=== PATIENT | male | born 1955 | race Caucasian/White ===

== ENCOUNTER 2022-06-04 10:59 | Outpatient (REF) | payer OTHER, SELFPAY ==
[2022-06-04 13:52] LABS: MANUAL DIFF FLAG NO
[2022-06-04 13:58] LABS: Basophils Percent Auto 0.3 % (0-2); Eosinophils Absolute Auto 0.5 X10*3/uL (0.0-0.4); Eosinophils Percent Auto 8.7 % (0-4); Hematocrit 42.4 % (42.0-52.0); Hemoglobin 13.7 g/dl (14.0-18.0); Imm Gran Abs Auto 0.02 X10*3/uL (0.00-0.03); Imm Gran Pct Auto 0.3 % (0.0-0.4); Lymphocytes Absolute Auto 1.1 X10*3/uL (1.2-4.9); Lymphocytes Percent Auto 17.9 % (20-40); Mean Corpuscular HGB Conc 32.3 g/dl (31.0-36.0); Mean Corpuscular Hemoglobin 28.3 pg (27.0-33.0); Mean Corpuscular Volume 87.6 fL (80.0-98.0); Mean Platelet Volume 9.8 fL (9.4-12.4); Monocytes Absolute Auto 0.5 X10*3/uL (0.1-1.2); Monocytes Percent Auto 8.2 % (2-11); Neutrophils Absolute Auto 3.9 x10*3/uL (2.0-8.3); Neutrophils Percent Auto 64.6 % (45-73); Platelet Count 218 X10*3/uL (160-400); Red Blood Count 4.84 X10*6/uL (4.60-5.80); Red Cell Distribution Width 12.8 % (11.0-16.0); White Blood Count 6.1 X10*3/uL (4.8-10.8)
[2022-06-04 14:27] LABS: Alanine Aminotransferase 29 U/L (0-40); Albumin Level 4.1 g/dL (3.5-5.0); Alkaline Phosphatase 97 U/L (39-117); Anion Gap 12 (12-20); Aspartate Amino Transferase 19 U/L (5-37); Bilirubin Total 0.5 mg/dL (0.0-1.0); Blood Urea Nitrogen 21 mg/dL (9-16); Calcium 8.8 mg/dL (8.4-10.2); Carbon Dioxide 21 mmol/L (22-29); Chloride 111 mmol/L (96-108); Estimated Glomerular Filt Rate > 60; Glucose Random 122 mg/dL (60-115); Potassium 4.7 mmol/L (3.3-5.1); Sodium 139 mmol/L (135-145); Total Protein 6.8 g/dL (6.5-8.0)
[2022-06-04 14:28] LABS: Prostate Specific Antigen 2.35 ng/mL (<0.05-4.0)
== END 2022-06-04 11:00 | disposition home or self-care (01) ==
LOC: HO.MANLDS 10:59
PROVIDERS: Visit Provider Physician Assistant
DX: Z12.5 Encounter for screening for malignant neoplasm of prostate (principal); N40.0 Benign prostatic hyperplasia without lower urinary tract symptoms; I10 Essential (primary) hypertension
CPT/HCPCS: 36415; 80053; 84153; 85025

== ENCOUNTER 2023-07-19 15:30 | Outpatient (REF) | payer OTHER, SELFPAY ==
[2023-07-19 17:39] LABS: MANUAL DIFF FLAG NO
[2023-07-19 17:53] LABS: Basophils Percent Auto 0.4 % (0-2); Eosinophils Absolute Auto 0.8 X10*3/uL (0.0-0.4); Eosinophils Percent Auto 14.8 % (0-4); Hematocrit 42.1 % (42.0-52.0); Hemoglobin 13.4 g/dl (14.0-18.0); Imm Gran Abs Auto 0.03 X10*3/uL (0.00-0.03); Imm Gran Pct Auto 0.5 % (0.0-0.4); Lymphocytes Percent Auto 17.5 % (20-40); Mean Corpuscular HGB Conc 31.8 g/dl (31.0-36.0); Mean Corpuscular Hemoglobin 28.7 pg (27.0-33.0); Mean Corpuscular Volume 90.1 fL (80.0-98.0); Mean Platelet Volume 9.7 fL (9.4-12.4); Monocytes Absolute Auto 0.5 X10*3/uL (0.1-1.2); Monocytes Percent Auto 9.2 % (2-11); Neutrophils Absolute Auto 3.3 x10*3/uL (2.0-8.3); Neutrophils Percent Auto 57.6 % (45-73); Platelet Count 195 X10*3/uL (160-400); Red Blood Count 4.67 X10*6/uL (4.60-5.80); Red Cell Distribution Width 13.4 % (11.0-16.0); White Blood Count 5.7 X10*3/uL (4.8-10.8)
[2023-07-19 18:00] LABS: Alanine Aminotransferase 36 U/L (0-40); Albumin Level 4.2 g/dL (3.5-5.0); Alkaline Phosphatase 86 U/L (39-117); Anion Gap 13 (12-20); Aspartate Amino Transferase 29 U/L (5-37); Bilirubin Total 0.6 mg/dL (0.0-1.0); Blood Urea Nitrogen 17 mg/dL (9-16); Calcium 9.5 mg/dL (8.4-10.2); Carbon Dioxide 23 mmol/L (22-29); Chloride 112 mmol/L (96-108); Estimated Glomerular Filt Rate > 60; Glucose Random 89 mg/dL (60-115); Potassium 4.6 mmol/L (3.3-5.1); Sodium 143 mmol/L (135-145); Total Protein 7.1 g/dL (6.5-8.0)
[2023-07-19 18:14] LABS: Prostate Specific Antigen 2.73 ng/mL (<0.05-4.0)
[2023-07-19 18:17] LABS: Thyroid Stimulating Hormone 0.82 uIU/mL (0.32-4.0)
== END 2023-07-19 15:31 | disposition home or self-care (01) ==
LOC: HO.MANLDS 15:30
PROVIDERS: Visit Provider Internal Medicine
DX: Z12.5 Encounter for screening for malignant neoplasm of prostate (principal); I10 Essential (primary) hypertension; G47.33 Obstructive sleep apnea (adult) (pediatric)
CPT/HCPCS: 36415; 80053; 84153; 84443; 85025

== ENCOUNTER 2025-03-20 13:38 | Outpatient (REF) | payer OTHER, SELFPAY ==
--- OUTSIDE RECORDS SUMMARY | 2025-03-20 16:17 | XMS_ITS | Data Portability ---
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 We? ve discussed the many forms of conservative care for the treatment of the pain and the disability of knee arthritis. Prescription or over the counter NSAIDs have been discussed. These are offered to patients to be taken as directed only in those patients who can tolerate the medications and have no contraindication. He is now taking the Voltaren which does help him to some extent. Next, we have discussed injection in the knee and the many types of injection techniques. We have discussed cortisone, hyaluronic or gel injections, plasma rich protein ( PRP) and even stem cell. These can be made available here in the office. Pros and the cons discussed and if these are helpful they can even be repeated. He has had multiple injections in the past and is really not interested in further injections. Moderation of activities and even the use of bracing for the knee was discussed. For more extensive pain and disability possibly cane, crutch or walker. Physical therapy was discussed and can be prescribed in the more disabled patients. Finally, we have discussed the potential for total knee arthroplasty for the treatment of intractable knee arthritis. He is still frustrated with the left knee we have offered him the potential for left total knee arthroplasty potentially as an outpatient. We have now discussed the potential for a left possibly outpatient TKA. We talked about the pros and cons of left possibly outpatient TKA potential complications. These complications include, but are not limited to, infection, bleeding, stiffness, limitation of motion, limitation of recovery, the risks of limited knee motion, the need for closed manipulation in the short term. I talked about the extraordinary difficulty of gaining back the ROM, including the need for use of physical therapy modalities and even the need for extensive therapeutic modalities, maybe even bracing and potentially long rehab that could last even up to one year. We have discussed the potential for closed manipulation at the end of the initial rehabilitation if the flexion has not been gained adequately. We discussed the use of a splint or DynaSplint if flexion and extension, or if extension is the primary issue. We also talked about the potential for ligamentous injury, fracture of the femur, tibia or patella. We talked about the risks of problems with malalignment and persistent pain and swelling and the need for further operation or surgery. We also discussed the potential for wear, wear of the plastic and potential osteolysis. We talked about potential loosening of the components and the potential need for further surgical intervention over time. We have discussed the potential for loosening of the interfaces. We talked about the risks of potential peroneal nerve injury in those valgus patients with the need for realignment and the potential for ligamentous injury to the varus patients that are in need of realignment. We discussed the pros, cons, indications, risks, benefits and potential complications in a lengthy detailed discussion. The patient appears to understand and would like to consider that left possibly outpatient TKA surgery. Patient has end stage OA, and over the past year has failed conservative treatments including activity modification, NSAIDS, and physical therapy. We have offered and the potential for left total knee arthroplasty potentially as an outpatient. He has a significant dermatologic problem in the front portion of his knee and all the rest of his superficial skin on his elbows and knees. He is seeing a stoker mechanic now. Those lesions need to be completely clear. We will schedule him for the surgery but will need to see him in 3 weeks prior to the surgery in order to make certain that those lesions are completely cleared prior to his surgical intervention. All questions answered. [email or web address] Not available 08/05/2023 08:52:22 10/18/2023 10/18/2023 This visit was conducted as a real time interactive audio/visual telehealth visit conducted via [employer] The patient was identified by name and date of and consented to this telehealth visit. The patient was at their home in [place] and I was at my [place] office. Participants of the telehealth visit included myself and the patient . This visit was done over the course of 20 minutes including record review. PATIENT LEFT KNEE CLEAR TODAY ON EXAM, OK TO PROCEED WITH LEFT TKA. This visit has been transcribed using voice recognition software, spelling errors may occur. Please contact provider with any questions. [email or web address] Not available 10/18/2023 12:15:13 01/20/2024 01/20/2024 We have discusse d the post op TKA. I have encouraged continued outpatient physical therapy. A physical therapy prescription has been written, with specific emphasis on quadriceps strengthening extension, as well as ROM and flexion. We have spoken about wound care, the care of the actual incision, the care of the steri-strips and the care of the wound itself. Patient may use creams or lotions at this time if the wound is well healed. We discussed post op anticoagulation, pt may finish the anticoag med as prescribed post op, and return to their preop anticoag meds if they were prescribed. Also discussed the use of CHARLI stockings. I would recommend stopping them at this point unless they normally use supportive stockings, in which they would return to their normal supportive stocking wear. Patient should continue to ice and elevate to help with the swelling. Spoke with patient about anti-biotic precautions. We recommended Amoxicillin and they will contact us for prescriptions. If there is an allergy, we will discuss that further and make further recommendations for anti-biotic use and that will be on a continuing basis. We talked specifically about ROM strengthening, wound care, activity modifications and driving. Patient will work with outpatient PT on increasing ROM, strength -- will follow up with us in 10 weeks if further PT is needed. Not available 01/20/2024 13:48:24 03/30/2024 03/30/2024 We have discusse d the post op TKA. I have encouraged continued outpatient physical therapy. A physical therapy prescription has been written, with specific emphasis on quadriceps strengthening extension, as well as ROM and flexion. We have spoken about wound care, the care of the actual incision, the care of the steri-strips and the care of the wound itself. Patient may use creams or lotions at this time if the wound is well healed. We discussed post op anticoagulation, pt may finish the anticoag med as prescribed post op, and return to their preop anticoag meds if they were prescribed. Also discussed the use of CHARLI stockings. I would recommend stopping them at this point unless they normally use supportive stockings, in which they would return to their normal supportive stocking wear. Patient should continue to ice and elevate to help with the swelling. Spoke with patient about anti-biotic precautions. We recommended Amoxicillin and they will contact us for prescriptions. If there is an allergy, we will discuss that further and make further recommendations for anti-biotic use and that will be on a continuing basis. We talked specifically about ROM strengthening, wound care, activity modifications and driving. Patient will work with outpatient PT on increasing ROM, strength -- will follow up with us in 10 weeks if further PT is needed. [email or web address] Not available 03/30/2024 09:43:03 01/18/2025 01/18/2025 We have discusse d the TKA. I have encouraged continued exercises with specific emphasis on quadriceps strengthening extension, as well as ROM and flexion. Also discussed the use of supportive stockings/icing/an d elevating if swelling continues to linger. In those patients with chronic stasis, edema or propensity for edema with cellulitis, we've encouraged consulting their PCP for longer term supportive stocking use. We've spoken about anti-biotic precautions before dental procedures. We recommended Amoxicillin and they will contact us for prescriptions and refills prn. If there is an allergy, we will discuss that further and make further recommendations for anti-biotic use and that will be on a continuing basis. Patient should continue a home exercise program to optimize their function, f/u with us with any problems or concerns - and see us back as instructed for routine follow up and xrays. XRAYS were evaluated today during patient's visit, independently interpreted prior to receiving or reviewing Radiologist's interpretation and dictated report. This is a summary of the discussion with the patient and in no way is intended to be a verbatim summation of everything discussed. This visit has been transcribed using voice recognition software, spelling errors may occur. Please contact provider with any questions. [email or web address] Not available 01/18/2025 11:13:12 Plan of Treatment Reminders Order Date Submit Date Provider Last Modified By Organization Details Last Modified Time Details Appointments None recorded . Lab None recorded . Referral physical therapis t referral - Diagnosi s: 4 weeks s/p TKA 2023 024 [facility], [address] [place], [address], 4 10:47:53 Procedures None recorded . Surgeries orthopae dic surgery (SURG) [email or web address] [place] [address] Surgical Suites, [facility], [address], [address], [address], 10:09:32 Imaging None recorded . Medication Orders None recorded . Patient TargetsNo targets recorded. Patient InstructionsNo instructions recorded. Reason for Referral Physical Therapist Referral for Osteoarthritis of left knee joint Diagnosis: 4 weeks s/p TKA Special Instructions: Quad strengthening , extension exercises, COMPREHENSIVE HOME PROGRAM. Referring Physician: Laura Tripathi, Nurse Practitioner- Specialist, Encounter Date: 01/20/2024 Results Created Date Observation Date Name Description Value Unit Range Abnormal Flag Note LastModifiedBy Organization Detail LastModifiedTime 12/13/19 24 12/13/2023 elect izabel diogr am No observ ation record ed. [email or web address] Not Available 2023 15:19:56 01/20/20 24 01/20/2024 XR, knee No observ ation record ed. [email or web address] [facility] [address] [place], [address], 03/22/2024 08:58:23 01/18/20 25 01/18/2025 XR, knee, weigh tbear ing [facility] Pt Name : CHARITO HERNANDEZ 7 - Date: 1954 Sex: M Locati on : [facility] DXR[facility] Visit: [id number] Admit Date: 2024 Date of Servic e: 2024 Exam : XR KNEE AP CLAYTONI ANURAG ALMANZA RAL Status : Final Order MD : RADHA DONATO Ord Tel#:( [phone] CC Provid er:, ------ ------ ------ ------ ------ ------ ------ ------ ------ ------ ------ ------ ------ - INDICA TION: pain Findin gs: There is a left knee arthro plasty with patell ar resurf acing. There is a small knee joint effusi on. There is no eviden ce of hardwa re compli cation or malali gnment . No osseou s lesion s are identi fied and no soft tissue abnorm alitie s are seen. REPORT SIGNED BY: KJ ROBERSON 10:19: 15 [facility] [address] [place], [address], 01/21/2025 07:38:07 01/18/2001/18/2025 XR, knee, 1 or 2 view [facility] Pt Name : CHARITO HERNANDEZ 7 - Date: 1954 Sex: M Locati on : [facility] DXR[facility] Visit: [id number] Admit Date: 2024 Date of Servic e: 2024 Exam : XR KNEE 2 VW LEFT Status : Final Order MD : RADHA DONATO E Ord Tel#:( [phone] CC Provid er:, ------ ------ ------ ------ ------ ------ ------ ------ ------ ------ ------ ------ ------ - INDICA TION: pain Findin gs: There is a left knee arthro plasty with patell ar resurf acing. There is a small knee joint effusi on. There is no eviden ce of hardwa re compli cation or malali gnment . No osseou s lesion s are identi fied and no soft tissue abnorm alitie s are seen. REPORT SIGNED BY: KJ ROBERSON 10:19: 15 Workst ation: [id number] [facility] [address] [place] [address], [place], [address], 01/21/2025 07:38:07 Result Notes None recorded. Problems Name Problem SNOMED Code Status Onset Date Resolution Date Notes Provider Name and Address Organization Details Recorded Time Urticaria 724258524 Active 2021 Not Available [facility] 4 11:07:44 Insomnia 660560117 Active 2020 Not Available [facility] 4 11:07:44 Osteoarthr itis of hip 608912334 Active 2017 Not Available [facility] 4 11:07:44 Benign prostatic hyperplasi a 645660031 Active 2019 Not Available [facility] 4 11:07:44 Shoulder joint pain 354127280 Active 2021 Not Available [facility] 4 11:07:45 Low back pain 881699260 Active 2017 Not Available [facility] 4 11:07:45 Osteoarthr itis of left knee joint 7878585222067 09 Active 2022 Not Available [facility] 4 11:07:45 Anxiety 51719360 Active 2019 Not Available [facility] 4 11:07:45 Essential hypertensi on 63774115 Active 2017 Not Available [facility] 4 11:07:45 Degenerati on of cervical interverte bral disc 56308861 Active 2021 Not Available [facility] 4 11:07:45 Greater trochanter ic pain syndrome 9295122 Active 2017 Not Available [facility] 4 11:07:45 Obstructiv e sleep apnea syndrome 12560624 Active 2022 Not Available [facility] 4 11:07:45 Neck pain 16126816 Active 2021 Not Available [facility] 4 11:07:45 Ophthalmic migraine 36304934 Active 2017 Not Available [facility] 4 11:07:45 Osteoarthr itis of knee 538913424 Active 2023 Not Available [facility] 4 11:07:44 Pain of left knee joint 7822934317703 07 Active 2023 LAURA TRIPATHI NP [address] [place], [address] , [facility] 4 16:53:04 Problem Notes None recorded. Procedures Surgical History Date Name Laterality Status Provider Name and Address Organization Details Recorded Time 4 Orthopaedic Surgery completed Massiel Cadet [facility] 01/20/2024 13:32:39 5 Orthopaedic Surgery completed LAURA TRIPATHI NP [address] [place], [address], [facility] 07/25/2023 14:49:32 Other completed LAURA TRIPATHI NP [address] [place], [address], [facility] 07/25/2023 14:54:16 Imaging Results Imaging Date Name Status LastModified by Organization Details LastModified Time 12/13/2023 electrocardiogram completed [email or web address] Informa tion not available 01/13/2024 15:19:56 01/20/2024 XR, knee completed [email or web address] [facility] [address] [place], [address], 03/22/2024 08:58:23 01/18/2025 XR, knee, weightbearing completed [facility] [address] [place], [address], 01/21/2025 07:38:07 01/18/2025 XR, knee, 1 or 2 view completed [facility] [address] [facility], [place], [address], 01/21/2025 07:38:07 Procedure Notes None recorded. Medical Equipment None Reported. Allergies Allergen ID Allergen Name Allergen Category Reaction Reaction Severity Criticality Documentation Date Start Date Code Code System Note Provider Name and Address Organization Details Recorded Time 19510104 amoxicill in medicatio n Not available Not available Not available 07/25/2023 723 RxNorm LAURA TRIPATHI, BILL [address] [place], [address], [facility] 3 14:49:40 606825 Augmentin medicatio n abdominal pain severe Not available 07/25/20232020 61420 2 RxNorm LAURA TRIPATHI, BILL [address] [place], [address], [facility] 3 14:49:40 613655 wheat gluten extract food rash Not available Not available 07/25/2023 53229 81 RxNorm Not Available [facility] 4 11:07:43 Medications Name Sig Start Date Stop Date Status Note LastModified by Organization Details LastModified Time cyclobenzap rine 10 mg tablet TAKE 1 TABLET BY MOUTH THREE TIMES A DAY FOR 15 DAYS 12/31 completed Not Available Not Available Not Available amoxicillin 500 mg capsule 07/24 completed Not Available Not Available Not Available prednisone 10 mg tablet PLEASE SEE ATTACHED FOR DETAILED DIRECTION S 07/25 completed Not Available Not Available Not Available trazodone 50 mg tablet TAKE 1 TABLET BY MOUTH EVERY DAY 07/25 completed Not Available Not Available Not Available azithromyci n 250 mg tablet TAKE 2 TABLETS BY MOUTH 1 HOUR BEFORE DENTAL WORK active Not Available Not Available No t Available valacyclovi r 1 gram tablet TAKE 1 TABLET BY MOUTH EVERY 8 HOURS FOR 7 DAYS 06/23 completed Not Available Not Available Not Available meloxicam 15 mg tablet TAKE 1 TABLET EVERY DAY BY ORAL ROUTE FOR 30 DAYS. 06/05 completed Not Available Not Available Not Available lisinopril 20 mg tablet TAKE 1 TABLET BY MOUTH ONCE DAILY 02/02 completed Not Available Not Available Not Available ondansetron HCl 4 mg tablet TAKE 1 TAB EVERY 6-8 HOURS NEEDED NEEDED FOR NAUSEA 03/30 completed Not Available Not Available Not Available phentermine 15 mg capsule TAKE 1 CAPSULE BY MOUTH EVERY DAY active Not Available Not Available No t Available amlodipine 5 mg tablet TAKE 1 TABLET BY MOUTH EVERY DAY active Not Available Not Available No t Available aspirin 81 mg tablet,ojão yed release TAKE 1 TABLET BY MOUTH TWICE A DAY FOR 28 DAYS 03/30 completed Not Available Not Available Not Available triamcinolo ne acetonide 0.1 % topical cream APPLY TOPICALLY TO AFFECTED AREAS TWICE DAILY NEEDED FOR TWO WEEKS 06/04 completed Not Available Not Available Not Available terbinafine HCl 250 mg tablet TAKE 1 TABLET BY MOUTH EVERY DAY FOR 3 WEEKS 10/19 completed Not Available Not Available Not Available lorazepam 0.5 mg tablet TAKE 1 TABLET TWICE A DAY BY ORAL ROUTE NEEDED FOR 30 DAYS, FOR ANXIETY AND PANIC DISORDER. active Not Available Not Available No t Available tamsulosin 0.4 mg capsule TAKE 1 CAPSULE BY MOUTH EVERY DAY active Not Available Not Available No t Available trazodone 100 mg tablet TAKE 1 TABLET BY MOUTH EVERYDAY AT BEDTIME active Not Available Not Available No t Available cephalexin 500 mg capsule TAKE 1 CAPSULE BY MOUTH EVERY 6 HOURS FOR 4 DOSES 03/30 completed Not Available Not Available Not Available clotrimazol e-betametha sone 1 %-0.05 % topical cream APPLY TO AFFECTED AREA TWICE A DAY (MORNING AND EVENING) FOR 2 WEEKS 02/02 completed Not Available Not Available Not Available lisinopril 10 mg tablet Take 1 tablet every day by oral route for 30 days. 03/04 completed Not Available Not Available Not Available dapsone 25 mg tablet TAKE 2 TABLETS BY MOUTH TWICE A DAY active Not Available Not Available No t Available diclofenac potassium 50 mg tablet 03/01 completed Not Available Not Available Not Available betamethaso ne dipropionat e 0.05 % topical cream APPLY SPARINGLY TO AFFECTED AREA EVERY DAY 06/04 completed Not Available Not Available Not Available gabapentin 300 mg capsule Take 1 capsule every day by oral route for 30 days. 06/23 completed Not Available Not Available Not Available sertraline 25 mg tablet TAKE 1 TABLET BY MOUTH EVERY DAY 05/19 completed Not Available Not Available Not Available omeprazole 20 mg capsule,del ayed release TAKE 1 CAPSULE BY MOUTH EVERY DAY 03/30 completed Not Available Not Available Not Available diclofenac sodium 75 mg tablet,joão yed release TAKE 1 TABLET BY MOUTH TWICE A DAY NEEDED FOR PAIN 03/30 completed Not Available Not Available Not Available codeine 10 mg-guaifene sin 100 mg/5 mL oral liquid TAKE 10 ML BY MOUTH EVERY 4-6 HOURS NEEDED active Not Available Not Available No t Available halobetasol propionate 0.05 % topical cream APPLY A THIN LAYER TO THE AFFECTED AREA(S) BY TOPICAL ROUTE ONCE DAILY DO NOT EXCEED 50 GRAMS PER WEEK OR 2 WEEKS DURATION 06/04 completed Not Available Not Available Not Available metoprolol succinate ER 25 mg tablet,exte nded release 24 hr TAKE 1 TABLET BY MOUTH EVERY DAY 10/24 completed Not Available Not Available Not Available methylpredn isolone 4 mg tablets in a dose pack TAKE 6 TABLETS ON DAY 1 DIRECTED ON PACKAGE AND DECREASE BY 1 TAB EACH DAY FOR A TOTAL OF 6 DAYS 01/18 completed Not Available Not Available Not Available albuterol sulfate HFA 90 mcg/actuati on aerosol inhaler INHALE 2 PUFFS BY INHALATIO N ROUTE EVERY 4 HOURS DIRECTED active Not Available Not Available No t Available lisinopril 40 mg tablet TAKE 1 TABLET BY MOUTH EVERY DAY active Not Available Not Available No t Available fluticasone propionate 50 mcg/actuati on nasal spray,suspe nsion [place] 1 spray every day by intranasa l route for 30 days. 06/23 completed Not Available Not Available Not Available sertraline 50 mg tablet TAKE 1 TABLET BY MOUTH EVERY DAY active Not Available Not Available No t Available naproxen 500 mg tablet Take 1 tablet twice a day by oral route for 30 days. 11/25 completed Not Available Not Available Not Available amoxicillin 875 mg-potassiu m clavulanate 125 mg tablet Take 1 tablet every 12 hours by oral route for 10 days. 09/22 completed Not Available Not Available Not Available oxycodone 5 mg tablet TAKE 1 TO 2 TABLETS BY MOUTH EVERY 4 HOURS NEEDED FOR PAIN 01/20 completed Not Available Not Available Not Available Aleve active Not Available Not Availa ble Not Available Vitals Date Recorded Body height Body mass index (BMI) Body weight Provider Name and Address Organization Details Last Updated DateTime 08/05/2023 182.88 cm 33.9 kg/m2 587489.09 g Silvano Mendoza [facility] 08/05/2023 07:54:01 Date Recorded Body height Body mass index (BMI) Body weight Provider Name and Address Organization Details Last Updated DateTime 10/18/2023 182.88 cm 33.9 kg/m2 557399.09 g LAURA TRIPATHI NP [address] [place], [address], [facility] 10/18/2023 12:08:52 Date Recorded Body height Provider Name an d Address Organization Details Last Updated DateTime 01/20/2024 182.88 cm Massiel Cadet [facility] 01/20/2024 13:32:41 Date Recorded Body height Provider Name an d Address Organization Details Last Updated DateTime 03/30/2024 182.88 cm Keith EDDY P [address] [facility] [id number] [place] [address] [facility] 03/30/2024 09:20:07 Date Recorded Body height Provider Name an d Address Organization Details Last Updated DateTime 01/18/2025 182.88 cm Keith Eddy P [address] [place], [address] [place] [address] [facility] 01/18/2025 11:02:20 Social History Question Answer Notes LastModified by Organizat ion Details LastModified Time Tobacco Smoking Status Never Smoker LAURA TRIPATHI NP [address] [place], [address], [facility] 07/25/2023 14:53:38 What Is Your Level Of Alcohol Consumption? None [email or web address] Information not available 07/25/2023 Are You Currently Employed? Yes [email or web address] Information not available 07/25/2023 Do You Or Have You Ever Used E-cigarettes Or Vape? 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 [id number] [email or web address] Information not available 07/25/2023 Do You Or Have You Ever Used Any Other Forms Of Tobacco Or Nicotine? No [email or web address] Information not available 07/25/2023 Sex: Unknown Functional Status None recorded. Mental Status None recorded. Family History Relationship Description Onset Age of this Age Resolved Age Notes LastModified by Organization Details LastModified Time Father No current problems or disability tgardiner Not available 08/05 07:54:39 Notes:mother had hypertensio n, heart issues, high cholesterol Medical History Condition Response Blood Clots / Phlebitis N Heart Problems N HIV or AIDS N Depression or Anxiety Y High Blood Pressure Y Irregular Heartbeat N MRSA N Emphysema / Chronic Bronchitis N Any Other Significant Medical Issues N Reaction to General/Local Anesthesia N Weight Gain / Loss N Hepatitis / Jaundice N Kidney / Bladder Infections N Diabetes N Bleeding Disorder N Hearing Loss Y Angina, Heart Failure or Attack N Night Sweats N Seizures / Epilepsy N Osteoarthritis / Rheumatoid arthritis / Other N Cancer N Stroke N Chemical Dependency / Alcoholism N Ulcer / Stomach Bleeding / Indigestion N Visual Loss or Glaucoma N Psoriasis / Skin Rash N Thyroid Disorder N Heart Disease N Asthma / Shortness of Breath / Sleep 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 (please specify) N Pulmonary Embolism N Immunizations Vaccine Type Date Status Note Provider Nam e and Address Organization Details Recorded Time COVID-19, mRNA, LNP-S, PF, 30 mcg/0.3 mL dose 02/18/2021 completed Not Available [facility] 4 11:07:45 COVID-19, mRNA, LNP-S, PF, 30 mcg/0.3 mL dose 03/13/2021 completed Not Available [facility] 4 11:07:45 Past Encounters Encounter ID Performer Location Encounter Start Date Encounter Closed Date Diagnosis/Indication Diagnosis SNOMED-CT Code Diagnosis ICD10 Code Diagnosis Note [id number] LAURA TRIPATHI NP [facility] [address] [place] [address] 07/25/2023 14:45:05 07/25/2023 15:33:02 Osteoarthritis of left knee joint 0550430272 19451 M17.12 [id number] Mary Flower [facility] [address] [place] [address] 08/05/2023 07:51:32 08/05/2023 13:07:56 Osteoarthritis of left knee joint 4415430638 32018 M17.12 [id number] [facility] [address] [place] [address] 10/18/2023 08:40:52 10/18/2023 16:17:37 [id number] LAURA TRIPATHI NP [facility] Office [address] [employer] [place] [address] 01/20/2024 12:58:21 01/20/2024 16:07:57 Osteoarthritis of left knee joint 6748219462 46283 M17.12 [id number] LAURA TRIPATHI NP [facility] [address] [facility] [place] [address] 03/30/2024 08:58:31 03/30/2024 11:43:55 Osteoarthritis of left knee joint 6917845347 61983 M17.12 [id number] Laura Tripathi NP [place] [facility] [address] [facility] [place] [address] 01/18/2025 10:03:33 01/18/2025 12:33:38 Osteoarthritis of left knee joint 4962619425 00451 M17.12 Health Concerns Section Related Observation LastModified by Organization Detai ls LastModified Time None Recorded Concern Status LastModified by Organization Details LastModified Time None Recorded Advance Directives Directive None Recorded Payers Encounter Date Sequence Insurance Name Policy Number Policy Griffin Covered Member ID Griffin Member ID Guarantor Name 08/05/[address] [facility]) [id number] Santhosh Hernandez [id number] Santhosh Hernandez 10/18/[address] [facility]) [id number] Santhosh Hernandez [id number] Santhosh Hernandez 01/20/2024 1 [facility] [id number] Santhosh Hernandez [id number] Santhosh Hernandez 03/30/2024 1 [facility] [id number] Santhosh Hernandez [id number] Santhosh Hernandez 01/18/2025 1 [facility] [id number] Santhosh Hernandez [id number] Santhosh Hernandez Notes Date Note Type Note Provider Name and Address Organization Details Recorded Time 08/05/2023 text/html Santhosh Hernandez presents for evaluation of his left knee. He reports at least 3 to 4 years of increasing pain problems difficulties with his left knee. He reports he been taking Aleve tablets. He has had cortisone injection in the left knee. He had gel injections the left knee. He is limping terribly over the left knee. Finds it very painful and limiting to his activities. 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 He has not had surgery on the left knee. He was switched to diclofenac on his last visit which does seem to be helping a little bit more. He is very frustrated however with the limitations even of activities of daily living with that left knee. BANDAR OCAMPO MD [address] [facility], [place], [address], [facility] [place] 08/05/2023 08:53:05 10/18/2023 text/html TELEHEALTH VISIT , EVAL LEFT KNEE FOR A RASH THAT POPPED UP, PATIENT IRA IT WAS FOOD ALLERGYHAS FINISHED A COURSE OF MEDS PRESCRIBED BY HIS MD. 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 4 weeks ago at {{[facility] Patient is doing well, taking {{NSAIDS TYLENOL* NOTHING}}and NSAIDS for pain. Patient is currently progressing well with {{home outpatient* }} physical therapy. Patient took {{ELIQUIS ECASA*}} for post op anticoagulation, and has finished that course. No fevers, chills, falls, or trauma. Patient ambulates using a {{CANE CRUTCH NO.A SSISTIVE.DEVICES. CRUTCHES#}} . Complaints include ? STIFF, WORKING HARD ON ROM BUT STILL ACHY AND SWOLLEN LAURA TRIPATHI NP [address] [facility], [place], [address], [facility] [place] 01/23/2024 14:04:02 03/30/2024 text/html This is a patien t of GVF, s/p {{RIGHT LEFT*}} {{FRANCIS TKA*}} roughly 4 months ago.Patient is doing well, taking {{NSAIDS* TYLENOL NOTHING}} PRN for pain. 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 one year ago. Patient is doing well, taking {{NSAIDS* TYLENOL NOTHING}}PRN for pain. Patient is currently progressing well with home exercise program. No fevers, chills, falls, or trauma. Patient is not currently using any assistive devices. Other complaints include - MILD TIGHTNESS AT TIMES, BUT OVERALL DOING WELL Laura Tripathi NP [address] [place], [address], [facility] 01/23/2025 18:37:33
--- OUTSIDE RECORDS SUMMARY | 2025-03-20 16:18 | XMS_ITS | Continuity of Care Document ---
Author Organization [place] - [facility], [facility] Address [address] [facility] [place] [address] [place] [address] Assessment No assessment recorded. Plan of Treatment Reminders Order Date Submit Date Provider Last Modified By Organization Details Last Modified Time Details Appointments SDV 2024 11:30A M ANILA MONTANA Not available Not available Not available Lab culture, wound - left knee lesion 2024 025 [facility], [address] [place] [address], [id number], 03/20/2025 11:53:26 Referral None recorded. Procedures None recorded. Surgeries None recorded. Imaging XR, knee, 3 view - hx of replaceme nt, has non healing ulcer on the skin of the left knee 2024 025 [email or web address] [facility], [address] [place], [address], 03/20/2025 12:20:40 Medication Orders doxycycli ne hyclate [address] [id number], [address] [place], [address], 03/20/2025 11:52:07 Patient TargetsNo targets recorded. Patient InstructionsNo instructions recorded. Reason for Referral None Reported. Problems Name Problem SNOMED Code Status Onset Date Resolution Date Notes Provider Name and Address Organization Details Recorded Time Benign prostatic hyperplas ia 928943395 Active 2019 Not Available [facility] 10/07/202 1 08:01:02 Anxiety 36122178 Active 2019 Not Available [facility] 1 08:01:02 Insomnia 677949913 Active 2020 Not Available [facility] 08:01:02 Urticaria 288066639 Active 2021 Rafa Rodriguez DO [address] [place] [address], [address], [facility] 2 14:34:06 Neck pain 81907301 Active 2021 ANILA MONTANA [address] [place], [address], [facility] 2 10:44:03 Shoulder joint pain 924236692 Active 2021 ANILA MONTANA [address] [place], [address], [facility] 2 10:48:28 Shoulder joint pain 995906153 Active 2021 ANILA MONTANA [address] [place], [address], [facility] 2 10:48:42 Degenerat ion of cervical intervert ebral disc 97955738 Active 2021 ANILA MONTANA [address] [place], [address], [facility] 2 10:01:05 Osteoarth ritis of hip 342349144 Active 2017 Right, THR 05/2015 Not Available [facility] 1 08:01:02 Greater trochante wilmer pain syndrome 7683625 Active 2017 Not Available [facility] 1 08:01:02 Low back pain 866383468 Active 2017 LS Not Available [facility] 1 08:01:02 Ophthalmi c migraine 69143925 Active 2017 Not Available [facility] 1 08:01:02 Obstructi ve sleep apnea syndrome 63078041 Active 2022 Rafa Rodriguez, DO [address] [place], [address], [facility] 3 15:17:46 Osteoarth ritis of left knee joint 275021140517 109 Active 2022 Rafa Rodriguez, DO [address] [place], [address], [facility] 3 15:24:40 Panic disorder 727859870 Active 2023 ANILA MONTANA [address] [place] [address], [address], [facility] 4 11:48:25 Night sweats 75312664 Active 2023 ANILA MONTANA [address] [place] [address], [address], [facility] 4 12:36:49 Acute bronchiti s 73322853 Active 2023 ANILA MONTANA [address] [place] [address], [address], [facility] 4 15:02:05 Pain of left shoulder joint 481068602139 08539 Active 2024 ANILA MONTANA [address] [place] [address], [address], [facility] 5 14:35:01 Cough 33882783 Active 2024 ANILA MONTANA [address] [place] [address], [address], [facility] 5 12:00:29 Acute low back pain 496766259 Active 2024 ANILA MONTANA [address] [place] [address], [address], [facility] 5 15:08:52 Degenerat ion of lumbar intervert ebral disc 03119348 Active 2024 ANILA MONTANA [address] [place] [address], [address], [facility] 5 15:17:59 Celluliti s 713075701 Active 2024 ANILA MONTANA [address] [place], [address], [facility] 5 11:47:50 Essential hypertens ion 40041267 Active 2017 Not Available [facility] 08:01:02 Problem Notes None recorded. Medical Equipment None Reported. Allergies Allergen ID Allergen Name Allergen Category Reaction Reaction Severity Criticality Documentation Date Start Date Code Code System Note Provider Name and Address Organization Details Recorded Time 4958 amoxicill in medicatio n Not available Not available Not available 09/22/2021 723 RxNorm Rafa Rodriguez DO [address] [place], [address], [facility] 16:45:45 4959 Augmentin medicatio n abdominal pain severe Not available 09/22/20212020 81290 2 RxNorm Rafa Rodriguez DO [address] [place], [address], [facility] 16:46:21 Medications Name Sig Start Date Stop Date Status Note LastModified by Organization Details LastModified Time cyclobenzap rine 10 mg tablet TAKE 1 TABLET BY MOUTH THREE TIMES A DAY FOR 15 DAYS 12/31 completed Not Available Not Available Not Available amoxicillin 500 mg capsule TAKE 1 CAPSULE BY MOUTH THREE TIMES A DAY 07/19 completed Not Available Not Available Not Available prednisone 10 mg tablet PLEASE SEE ATTACHED FOR DETAILED DIRECTION S 09/14 completed Not Available Not Available Not Available trazodone 50 mg tablet TAKE 1 TABLET BY MOUTH EVERY DAY active Not Available Not Available No t Available azithromyci n 250 mg tablet TAKE 2 TABLETS BY MOUTH 1 HOUR PRIOR TO PROCEDURE 11/30 completed Not Available Not Available Not Available valacyclovi r 1 gram tablet TAKE [...] EVERY 6-8 HOURS NEEDED NEEDED FOR NAUSEA 02/15 completed Not Available Not Available Not Available phentermine 15 mg capsule Take 1 capsule every day by oral route for 30 days. 2024 active Not Available Not Available Not Avai lable amlodipine 5 mg tablet TAKE 1 TABLET BY MOUTH EVERY DAY active Not Available Not Available No t Available aspirin 81 mg tablet,joão yed release TAKE 1 TABLET BY MOUTH TWICE A DAY FOR 28 DAYS active Not Available Not Available No t Available triamcinolo ne acetonide 0.1 % topical [...] MOUTH EVERY 6 HOURS FOR 4 DOSES 11/30 completed Not Available Not Available Not Available [...] Available Not Available No t Available diclofenac sodium 75 mg tablet,joão yed release TAKE 1 TABLET BY MOUTH TWICE A DAY NEEDED FOR PAIN 10/14 completed Not Available Not Available Not Available codeine 10 mg-guaifene sin 100 mg/5 mL oral liquid TAKE 10 ML BY MOUTH EVERY 4-6 HOURS NEEDED 02/15 completed Not Available Not Available Not Available halobetasol propionate 0.05 % topical cream [...] 4 mg tablets in a dose pack take as directed active Not Available Not Available No t Available albuterol sulfate HFA 90 mcg/actuati on aerosol inhaler Inhale 2 puffs every 4 hours by inhalatio n route as directed for 30 days. active Not Available Not Available No t Available lisinopril 40 mg tablet TAKE 1 TABLET BY MOUTH EVERY DAY 2024 active Not Available Not Available Not Avai lable fluticasone propionate 50 mcg/actuati on nasal spray,suspe nsion [place] 1 spray every day by intranasa l route for 30 days. 06/23 completed Not Available Not Available Not Available sertraline 50 mg tablet TAKE 1 TABLET BY MOUTH EVERY DAY FOR 30 DAYS active Not Available Not Available No t Available doxycycline hyclate 100 mg tablet Take 1 tablet twice a day by oral route for 7 days. 2024 active Not Available Not Available Not Avai lable naproxen 500 mg tablet Take 1 tablet [...] MOUTH EVERY 4 HOURS NEEDED FOR PAIN 02/15 completed Not Available Not Available Not Available Aleve 08/11 completed Not Available Not Available Not Available Vitals Date Recorded Body height Body mass index (BMI) Body weight Heart rate Oxygen saturation Oxygen saturation in Arterial blood by Pulse oximetry Systolic blood pressure Diastolic blood pressure Provider Name and Address Organization Details Last Updated DateTime 5 179.07 cm 36.3 kg/m2 256834. 72 g 72 /min 95 % 95 % 126 mm[Hg] 80 mm[Hg] Aishwarya Marroquin [facility] 5 11:37:24 Social History Question Answer Notes LastModified by Organizat ion Details LastModified Time Tobacco Smoking Status Never Smoker Zaira espinoza [facility] 03/01/2018 14:51:38 What Was The Date Of Your Most Recent Tobacco Screening? 03/20/2025 [email or web address] Information not available 03/20/2025 Do You Or Have You Ever Used Any Other Forms Of Tobacco Or Nicotine? No [email or web address] Information not available 07/19/2023 Sex: Unknown Functional Status None recorded. Mental Status None recorded. Family History Nothing Reported. Medical History No medical history recorded. Immunizations Vaccine Type Date Status Note Provider Nam e and Address Organization Details Recorded Time COVID-19, mRNA, LNP-S, PF, 30 mcg/0.3 mL dose 02/18/2021 completed Not Available [facility] 08:01:02 COVID-19, mRNA, LNP-S, PF, 30 mcg/0.3 mL dose 03/13/2021 completed Not Available [facility] 08:01:02 Past Encounters Encounter ID Performer Location Encounter Start Date Encounter Closed Date Diagnosis/Indication Diagnosis SNOMED-CT Code Diagnosis ICD10 Code Diagnosis Note [id number] ANILA MONTANA [facility] [address] [facility],[place] [address] 03/20/2025 11:15:10 03/20/2025 12:20:40 Cellulitis 200627497 L03.818 start on doxy, culture send out after taking skin sample History of total knee arthroplasty 9957733902 105 Z96.652 check status of replacemen t Health Concerns Section Related Observation LastModified by Organization Detai ls LastModified Time None Recorded Concern Status LastModified by Organization Details LastModified Time None Recorded Payers Encounter Date Sequence Insurance Name Policy Number Policy Griffin Covered Member ID Griffin Member ID Guarantor Name 03/20/2025 1 [facility] [id number] Santhosh Jarquin [id number] Santhosh Jarquin Notes Date Note Type Note Provider Name a nd Address Organization Details Recorded Time 5 text/html c/o lesion left knee the patient reports that he noticed a lesion on his L knee, which is the knee he had the replacement this past yeardoesn't know where it came from or if he injured himselfmild grade on ulcerative changes of the lesiondoes note it was leaking purulent d/c yesterday, dry today having mild left knee painrecommended XR to check the integrity of the replacement given concern for infection of the surrounding skin ANILA MONTANA [address] [place] [address], [place], [address], [facility] 03/20/2025 11:57:54
--- OUTSIDE RECORDS SUMMARY | 2025-03-20 16:18 | XMS_ITS | Data Portability ---
Author Organization [facility], Home Service Address [address] [place] [address] Assessment Encounter Date Assessment Date Assessment LastModified by Organization Details LastModified Time 10/19/2024 10/19/2024 Patient agreed and verbally consents to this audio and video Telehealth appt via a secure platform [email or web address] Not available 10/19/2024 15:04:24 Plan of Treatment Reminders Order Date Submit Date Provider Last Modified By Organization Details Last Modified Time Details Appointments SDV 2024 11:30A M ANILA MONTANA Not available Not available Not available Lab culture, wound - left knee lesion 2024 025 [facility], [address] [place] [address], [place], [address], 03/20/2025 11:53:26 Referral None recorded. Procedures None recorded. Surgeries None recorded. Imaging XR, knee, 3 view - hx of replaceme nt, has non healing ulcer on the skin of the left knee 2024 025 [email or web address] [facility], [address] [place] [address], [address], 03/20/2025 12:20:40 XR, lumbosacr al spine, 2 or 3 view 2024 025 [facility], [address] [place] [address], [address], 02/16/2025 02:05:06 XR, shoulder, 2 or more view 2024 025 [facility] Central Scheduling (Not Breast), [address] [place], [address], 12/07/2024 08:33:11 Medication Orders doxycycli ne hyclate [address] [id number], [address] [place] [address], [address], 03/20/2025 11:52:07 phentermi ne 15 mg capsule [address] [id number], [address] [place] [address], [address], 11/30/2024 14:36:22 Medrol (Manjeet) 4 mg tablets in a dose pack [address] [id number], [address] [place] [address], [address], 10/19/2024 15:04:13 Zithromax Z-Manjeet 250 mg tablet [address] [id number], [address] [place] [address], [address], 11/30/2024 14:16:26 codeine 10 mg-guaife nesin 100 mg/5 mL oral liquid 2023 [id number], [address] [place] [address], [address], 02/15/2025 14:43:51 Patient TargetsNo targets recorded. Patient InstructionsNo instructions recorded. Reason for Referral None Reported. Results Created Date Observation Date Name Description Value Unit Range Abnormal Flag Note LastModifiedBy Organization Detail LastModifiedTime 01/04/20 25 01/04/2025 XR, chest , 2 view No observ ation record ed. [facility] [address] [facility] [address], [place], [address], 01/04/2025 16:02:19 02/17/20 25 02/15/2025 XR, lumbo sacra l spine , 2 or 3 view No observ ation record ed. [email or web address] [facility] [address] [facility], [place], [address], 02/18/2025 13:15:52 Result Notes None recorded. Problems Name Problem SNOMED Code Status Onset Date Resolution Date Notes Provider Name and Address Organization Details Recorded Time Benign prostatic hyperplas ia 899869824 Active 2019 Not Available [facility] 08:01:02 Anxiety 78674338 Active 2019 Not Available [facility] 08:01:02 Insomnia 805971196 Active 2020 Not Available [facility] 08:01:02 Urticaria 102618908 Active 2021 Rafa Rodriguez DO [address] [place], [address], [facility] [place] 2 14:34:06 Neck pain 06955863 Active 2021 ANILA MONTANA [address] [place] [address], [address], [facility] [place] 2 10:44:03 Shoulder joint pain 848657653 Active 2021 ANILA MONTANA [address] [place], [address], [facility] [place] 2 10:48:28 Shoulder joint pain 695000188 Active 2021 ANILA MONTANA [address] [place], [address], [facility] [place] 2 10:48:42 Degenerat ion of cervical intervert ebral disc 71441562 Active 2021 ANILA MONTANA [address] [place], [address], [facility] [place] 2 10:01:05 Osteoarth ritis of hip 754901967 Active 2017 Right, THR 05/2015 Not Available [facility] 1 08:01:02 Greater trochante wilmer pain syndrome 6061915 Active 2017 Not Available [facility] 1 08:01:02 Low back pain 913569053 Active 2017 LS Not Available [facility] 1 08:01:02 Ophthalmi c migraine 85387483 Active 2017 Not Available [facility] 1 08:01:02 Obstructi ve sleep apnea syndrome 24256943 Active 2022 Rafa Rodriguez, DO [address] [place] [address], [address], [facility] [place] 3 15:17:46 Osteoarth ritis of left knee joint 244328096835 109 Active 2022 Rafa Rodriguez, DO [address] [place] [address], [address], [facility] [place] 3 15:24:40 Panic disorder 804220435 Active 2023 ANILA MONTANA [address] [place] [address], [address], [facility] [place] 4 11:48:25 Night sweats 00049118 Active 2023 ANILA MONTANA [address] [place] [address], [address], [facility] [place] 4 12:36:49 Acute bronchiti s 94093684 Active 2023 ANILA MONTANA [address] [place] [address], [address], [facility] [place] 4 15:02:05 Pain of left shoulder joint 637194432105 04395 Active 2024 ANILA MONTANA [address] [place] [address], [address], [facility] [place] 5 14:35:01 Cough 38584054 Active 2024 ANILA MONTANA [address] [place] [address], [address], [facility] [place] 5 12:00:29 Acute low back pain 157905318 Active 2024 ANILA MONTANA [address] [place], [address], [facility] [place] 5 15:08:52 Degenerat ion of lumbar intervert ebral disc 46902192 Active 2024 ANILA MONTANA [address] [place], [address], [facility] [place] 5 15:17:59 Celluliti s 563858156 Active 2024 ANILA MONTANA [address] [place], [address], [facility] [place] 5 11:47:50 Essential hypertens ion 73351020 Active 2017 Not Available [facility] 08:01:02 Problem Notes None recorded. Procedures Surgical History None recorded. Imaging Results Imaging Date Name Status LastModified by Organiz ation Details LastModified Time 01/04/2025 XR, chest, [address] [facility] [address] [place] [address] [address], [place], [address], 01/04/2025 16:02:19 02/15/2025 XR, lumbosacral spine, 2 or 3 view completed [address], [address], 02/18/2025 13:15:52 Procedure Notes None recorded. Medical Equipment None Reported. Allergies Allergen ID Allergen Name Allergen Category Reaction Reaction Severity Criticality Documentation Date Start Date Code Code System Note Provider Name and Address Organization Details Recorded Time 4958 amoxicill in medicatio n Not available Not available Not available 09/22/2021 723 RxNorm Rafa Rodriguez DO [address] [place], [address], [facility] [place] 16:45:45 4959 Augmentin medicatio n abdominal pain severe Not available 09/22/20212020 51299 2 RxNorm Rafa Rodriguez, DO [address] [place], [address], [facility] [place] 16:46:21 Medications Name Sig Start [...] propionate 50 mcg/actuati on nasal spray,suspe nsion [place] 1 spray every day by intranasa l [...] and Address Organization Details Last Updated DateTime 4 179.07 cm 36.5 kg/m2 565928. 83 g 87 /min 95 % 95 % 128 mm[Hg] 60 mm[Hg] [facility] 4 10:21:21 Date Recorded Body height Body mass index (BMI) Body weight Heart rate Oxygen saturation Oxygen saturation in Arterial blood by Pulse oximetry Systolic blood pressure Diastolic blood pressure Provider Name and Address Organization Details Last Updated DateTime 5 179.07 cm 38 kg/m2 335825. 63 g 80 /min 97 % 97 % 126 mm[Hg] 82 mm[Hg] Aishwarya Drew [facility] 5 14:20:29 Date Recorded Body height Body mass index (BMI) Body weight Heart rate Oxygen saturation Oxygen saturation in Arterial blood by Pulse oximetry Systolic blood pressure Diastolic blood pressure Provider Name and Address Organization Details Last Updated DateTime 5 179.07 cm 35.9 kg/m2 146211. 46 g 72 /min 91 % 91 % 138 mm[Hg] 82 mm[Hg] Adriandiomedes Schwab [facility] 5 14:45:19 Date Recorded Body height Body mass index (BMI) Body weight Heart rate Oxygen saturation Oxygen saturation in Arterial blood by Pulse oximetry Systolic blood pressure Diastolic blood pressure Provider Name and Address Organization Details Last Updated DateTime 5 179.07 cm 36.3 kg/m2 096809. 72 g 72 /min 95 % 95 % 126 mm[Hg] 80 mm[Hg] Aishwarya Marroquin [facility] 5 11:37:24 Social History Question Answer Notes LastModified by Organizat ion Details LastModified Time Tobacco Smoking Status [facility]/01[facility]2018 14:51:38 What Was The Date Of Your Most Recent Tobacco Screening? 03/20/2025 [email or web address] Information not available 03/20/2025 Do You Or Have You Ever Used Any Other Forms Of Tobacco Or Nicotine? No [email or web address] Information not available 07/19/2023 Sex: Unknown Functional Status None recorded. Mental Status None recorded. Family History Nothing Reported. Medical History No medical history recorded. Immunizations Vaccine Type Date Status Note Provider Nam e and Address Organization Details Recorded Time COVID-19, mRNA, LNP-S, PF, 30 mcg/0.3 mL dose 02/18/2021 completed Not Available [facility] 08:01:02 COVID-19, mRNA, LNP-S, PF, 30 mcg/0.3 mL dose 03/13/2021 completed Not Available [facility] 08:01:02 Past Encounters Encounter ID Performer Location Encounter Start Date Encounter Closed Date Diagnosis/Indication Diagnosis SNOMED-CT Code Diagnosis ICD10 Code Diagnosis Note [id number] Tamera VIVIEN Del Angel [facility] [address] [facility] [place] [address] 03/01/2018 14:27:45 03/01/2018 16:06:44 Hypertensive disorder 32715151 I10 although I don't agree with d/c of metoprolol , I will attempt an experiment of no metoprolol for the next month and then recheck at the end of the month for recheck. pt agrees with plan. lifestyle management discussed at [facility], since he will be holding the metoprolol for the upcoming month. Lifestyle Modificati ons reviewed with patient:Do n't smoke or use tobacco products Lose weight, if you? r e overweight Exercise regularly, (try to aim for 30 minutes at least 5 days/week) Eat a healthy diet that includes lots of vegetables , fruits, quality grains that are high in fiber and lean protein such as fish and chicken. Limit sodium intake to less than 1,500 mg per day Limit alcohol to 1 drink per day for women, and 2 drinks per day for men Limit caffeine to 1-2 cups of coffee per day Manage stress, consider meditation , yoga, exercise or other healthy outlets to promote relaxation . Contact dermatitis 88574 004 L25.9 continue topical use of poison isadora treatment [id number] February Mer [facility] [address] [facility],[place] [address] 03/24/2018 15:27:02 03/24/2018 16:45:29 Essential hypertension 22042161 I10 currently stable on metoprolol . we will monitor again to make sure his BP doesn't spike after he d/c the metoprolol f/u next month Jeff nash 707800701 B 35.6 [id number] Deb Mendosa NP, S [facility] [address] [facility],[place] [address] 10/24/2018 15:49:46 10/24/2018 16:34:21 Essential hypertension 31807818 I10 Pt. stopped medication s Acute thor acic back pain 579129990 M54.6 resolved [place] chiropract ic adjustment [id number] Rafa Rodriguez, [facility] [address] [facility] [address] 02/20/2019 15:51:41 02/20/2019 16:24:26 Essential hypertension 38347975 I10 seems to be doing ok no medical current therapy will need labwork and followup Benign pro static hyperplasia 696971943 N40.[id number] [facility] [address] [facility] [address] [address] 06/26/2019 11:20:44 06/26/2019 15:07:45 Neck pain 06803206 M54.2 continue seeing chiropract or Pain of le ft shoulder joint 5772866866 1369196 M25.512 RICE Atypical chest pain 1025 07002 R07.89 EKG reassuring pain reprodicib le with palpations suggests muscular rather than cardiac Essential hypertension 36415624 I10 slightly elevated not on any meds [id number] [facility] [address] [facility] [address], [address] [address] 12/31/2019 16:00:46 12/31/2019 16:36:36 Essential hypertension 50196642 I10 elevated Benign pro static hyperplasia 435473079 N40.0 Acute stress disorder 67 754630 F43.0 acute stressors seem to [place] [id number] Tamera [facility] [address] [facility] [address] [address] 01/07/2020 15:13:22 01/07/2020 16:12:24 Essential hypertension 42494087 I10 stable now on lisinopril will continue on lisinopril and consider halving the dose in a week or so if still feeling dizziness Dizziness 144278686 R42 very mild, ? adr of lisinopril no apparent neuro findings will continue lisinopril for another week, but if sx persist will halve the dose at that time [id number] Tamera [facility] [address] [facility] [address], [place] [address] 03/04/2020 09:07:06 03/04/2020 11:03:13 Essential hypertension 44804854 I10 stable now on lisinopril per home readings should have f/u in 6 months Allergic rhinitis 679790 04 J30.9 try zyrtec may add flonase if needed call if sx change or worsen Benign pro static hyperplasia 723772670 N40.0 stable on flomax [id number] ANILA MONTANA [facility] [address] [facility],[place] [address] 07/30/2020 08:16:28 07/30/2020 16:38:28 Seasonal allergic rhinitis 806890437 J30.2 the patient is mostly likely dealing with a combinatio n of stress and seasonal allergies panfilo. given the fact he does not clean his mask or change it everyday the patient reports that he has to work all day with it Muscle pain 85544738 M79 .10 will continue to monitor msk pain told him it takes a few weeks to completely resolve given age and activity level Tinlili munozuris 997697526 B 35.6 needs refill [id number] ANILA MONTANA [facility] [address] [facility],[place] [address] 08/11/2020 10:20:10 08/11/2020 15:30:12 Anxiety 98914227 F41.9 had zoloft in the past during divorce and said it worked well for him will start him on sertraline and see if reduces some of the issues he is experienci ng Panic attack 490191954 F 41.0 most likely been experienci ng a panic attack when he was having the chest pains will start on maintenanc e medication s Essential hypertension 43776810 I10 BP is excellent today [id number] ANILA MONTANA [facility] [address] [facility],[place] [address] 11/25/2020 08:45:41 11/25/2020 16:24:40 Muscle pain 55046925 M79.10 will continue to monitor msk pain told him it takes a few weeks to completely resolve given age and activity level Muscle spa sm of cervical muscle of neck 7493651430 04 M62.838 will start on muscle relaxers and stronger NSAID for pain and inflammati on of muscle Anxiety 33071604 F41.9 much better on zoloft, no change in dose as he is happy with his current dose [id number] Rafa Rodriguez [facility] [address] [facility],[place] [address] 12/31/2020 12:07:05 12/31/2020 13:45:56 Anxiety 82199478 F41.9 afterr a long discussion re stress and anxiety and things he can do to help we will also have him increase the sertraline to 50mg Essential hypertension 14687857 I10 seems to be doing ok no medical current therapy will need labwork and followup Benign pro static hyperplasia 617062125 N40.0 will be checking a psa Excessive flatus 4719238 7 R14.3 long discussion re him altering his diet and avoiding the dairy etc [id number] Rafa Rodriguez [facility] [address] [facility],[place] [address] 02/06/2021 16:09:21 02/06/2021 16:30:04 Essential hypertension 03150175 I10 seems to be doing ok no medical current therapy will need labwork and followup Anxiety 65980065 F41.9 having increased the dose to 50 mg and heis doing so much better explained that he may plateau again and if he does we can increase the dose again Low back pain 060039771 M54.5 sore at times but is not worse so we will cont current tx Greater tr ochanteric pain syndrome 4209381 M70.61 seem s to have stabilized Osteoarthritis of hip 23 0973293 M16.9 hip seems to be ok real prob is the knee and we wo;; need tp follow you [id number] Rafa Rodriguez [facility] [address] [facility] [address],[place] [address] 05/19/2021 16:13:23 05/19/2021 16:58:11 Anxiety 69791444 F41.9 having increased the dose to 50 mg and he i s doing so much better explained that he may plateau again and if he does we can increase the dose again Essential hypertension 43804008 I10 seems to be doing ok no medical current therapy will need labwork and followup Pain in left knee 882763 0462 06411 M25.562 he is due for his kaur inj by the ortho and have decided to get the synvisc type joint injections Benign pro static hyperplasia 707102173 N40.0 cont to use tamsulosin [id number] ANILA MONTANA [facility] [address] [facility],[place] [address] 05/25/2021 10:54:52 05/25/2021 11:39:00 Herpes zoster 3659108 B02.9 will start on treatment and take the next few days off for the pain to resolve [id number] ANILA MONTANA [facility] [address] [facility],[place] [address] 06/23/2021 16:06:05 06/23/2021 16:45:00 Insomnia 077932782 G47.00 use an hour before bed and see how he does on the medication Anxiety 32923936 F41.1 much better on zoloft, no change in dose as he is happy with his current dose Essential hypertension 71714312 I10 BP is excellent today [id number] Rafa Rodriguez DO [facility] [address] [facility] [address] 07/17/2021 13:47:22 07/17/2021 14:25:01 Benign prostatic hyperplasia 925159204 N40.0 cont to use tamsulosin Essential hypertension 06348665 I10 seems to be doing ok no medical current therapy will need labwork and followup Insomnia 815429851 G47.0 0 we will need to increase the dose to 100mg hs Tinea cruris 601380565 B 35.6 Lesion of face 904662747 L98.9 has enlarging lesion on face 2 and these are getting worse [id number] Rafa Rodriguez DO [facility] [address] [facility],[place] [address] 08/31/2021 15:57:54 08/31/2021 16:26:54 Benign prostatic hyperplasia 602737458 N40.0 cont to use tamsulosin and we can increase the dose Essential hypertension 46636219 I10 seems to be doing ok no medical current therapy will need labwork and followup Left lower quadrant pain 383829305 R10.32 has been having pain present almost all the time sometimes worse than otherspres ent for a week not assoc with feverno issues with urinationt his might be divertic given he doesnt want big workup we will try a short course of augmentin Lesion of skin of face 8575759092 06 L98.9 [id number] Rafa Rodriguez DO [facility] [address] [facility],[place] [address] 09/22/2021 16:23:50 09/22/2021 16:56:21 Essential hypertension 32513300 I10 seems to be doing ok no medical current therapy will need labwork and followup Left lower quadrant pain 720427564 R10.32 overall he is now asymprtoma ticwhether the augmentin treated divertic or intial abd pain was from something else either way he is now asymptwill wait for any future episodes [id number] Rafa Rodriguez DO [facility] [address] [facility],[place] [address] 02/02/2022 14:54:20 02/02/2022 16:24:52 Essential hypertension 14983145 I10 seems to be doing fair but still lisinopril Eczema 49517244 L30.9 will apply this cream every night and see how it =works after a couple weeks Insomnia 408266712 G47.0 0 we will need to increase the dose to 100mg hs and he will try a concerted effort and call in couple weeks with update [id number] ANILA MONTANA [facility] [address] [facility],[place] [address] 06/04/2022 10:10:08 06/04/2022 11:23:25 Screening for cardiovascular system disease 038158444 Z13.6 will fu with cardiovasc ular screening given age and risk factors Neck pain 86244504 M54.2 will fu with XRs Benign pro static hyperplasia 803811296 N40.0 needs repeat PSA screening Essential hypertension 26905404 I10 BP is excellent today Shoulder joint pain 2679 53035 M25.511 will fu with shoulder [id number] Rafa Rodriguez DO [facility] [address] [facility] [address],[place] [address] 10/19/2022 14:09:14 10/19/2022 15:12:35 Essential hypertension 35936299 I10 seems to be doing great with low bp lisinopril 40 mg would like to cut in half and try that for a month and will call us in 1 month Degenerati on of cervical intervertebral disc 82925625 M50.30 Benign pro static hyperplasia 941474372 N40.0 cont to use tamsulosin and we can increase the dose Low back pain 218444339 M54.50 having persistant low back pain midline and uncomforta bleeval shows bilat lumbar muscles strain causing less of lordosis will have him LS xray obtain [id number] Rafa Rodriguez DO [facility] [address] [facility] [address],[place] [address] 07/19/2023 14:35:29 07/19/2023 15:36:25 Essential hypertension 46405898 I10 seems to be doing great with low bp lisinopril 40 mg would like to cut in half and try that for a month and will call us in 1 month Insomnia 900131518 G47.0 0 we will need to increase the dose to 100mg hs and he will try a concerted effort and call in couple weeks with updatehe is having more difficulty with this and is under a lot of stress with his sonmust consider poss sleep apnea too Obstructiv e sleep apnea syndrome 75372969 G47.33 will need to have him get this done [id number] ANILA MONTANA [facility] [address] [facility] [address],[place] [address] 09/14/2023 16:07:28 09/16/2023 08:18:02 Essential hypertension [id number] I10 will need to add medication to what he is taking for better BP control will add amlodipine Obstructiv e sleep apnea syndrome [id number] G47.33 not sleeping well, due to anxiety and insomnia Anxiety 94209813 F41.1 related to personal family issues [id number] ANILA MONTANA [facility] [address] [facility] [address],[place] [place] [address] [address] 09/28/2023 15:53:47 09/28/2023 16:41:04 Essential hypertension [id number] I10 continue with current medication slisinopri l 40 mg and amlodipine 5 mg Osteoarthr itis of left knee joint [id number] 71600 M17.12 has his surgery in 11/10/23 [id number] ANILA MONTANA [facility] [address] [facility],[place] [address] 10/14/2023 10:15:40 10/14/2023 15:38:18 Pre-surgery evaluation [id number] Z01.818 The patient was seen in the office today for pre-op evaluation . All medical conditions on patient's problem list were addressed and are currently stable, no interventi on needed at this time. Based on history and physical performed, the patient is cleared for surgery. Essential hypertension 12306897 I10 excellent control with lisinopril 40 mg and amlodipine 5 mg no side effects [id number] ANILA MONTANA [facility] [address] [facility] [address] 12/13/2023 10:13:19 12/13/2023 11:24:55 Pre-surgery evaluation [id number] Z01.818 The patient was seen in the office today for pre-op evaluation . All medical conditions on patient's problem list were addressed and are currently stable, no interventi on needed at this time. Based on history and physical performed, the patient is cleared for surgery. Essential hypertension 55210455 I10 stable on medication s, no adjustment s needed [id number] ANILA MONTANA [facility] [address] [facility],[place] [address] 10/19/2024 14:44:45 10/19/2024 16:00:39 Acute bronchitis 25309223 J20.8 will start [id number] ANILA MONTANA [facility] [address] [place] [address],[place] [address] 11/30/2024 14:13:48 11/30/2024 14:43:51 Depression screening 217604304 Z13.31 SCREENING NEGATIVE Body mass index 30+ - obesity 629003078 Z68.38 will start with phentermin e Pain of le ft shoulder joint [id number] M25.512 agreed to XR [id number] ANILA MONTANA [facility] [address] [facility] [address] [facility] [place] [address] 02/15/2025 14:37:38 02/15/2025 16:16:16 Acute low back pain 030338045 M54.51 probable discogenic disease given symptoms; needs XR Degenerati on of lumbar intervertebral disc 52704549 M51.369 previous XR showed moderate degenerati ve changes from lower lumbar [id number] ANILA [facility] [address] [facility] [address],[place] [address] 03/20/2025 11:15:10 03/20/2025 12:20:40 Cellulitis [id number] L03.818 start on doxy, culture send out after taking skin sample History of total knee arthroplasty [id number] 105 Z96.652 check status of replacemen t Health Concerns Section Related Observation LastModified by Organization Detai ls LastModified Time None Recorded Concern Status LastModified by Organization Details LastModified Time None Recorded Advance Directives Directive None Recorded Payers Encounter Date Sequence Insurance Name Policy Number Policy Griffin Covered Member ID Griffin Member ID Guarantor Name 12/13/2023 1 [email or web address] [id number] Santhosh C Banash [id number] Santhosh Banscipio 10/19/2024 1 [facility] [id number] Santhosh C Banash [id number] Santhosh Banash 11/30/2024 1 [facility] [id number] Santhosh C Banash [id number] Santhosh Banash 02/15/2025 1 [facility] [id number] Santhosh C Banash [id number] Santhosh Banash 03/20/2025 1 [facility] [id number] Santhosh C Banash [id number] Santhosh Banash Notes Date Note Type Note Provider Name a nd Address Organization Details Recorded Time 4 text/html Pre-OpReported bypatient.Surgery to be Performed:total left knee replacement with Dr. Gilbert ([place] [facility]) aware no EKG or labs prior to appointment Context/Condition Being Addressed:left knee Osteoarthritis Location:left knee Severity:moderate; moderate to severe Risk Factorsno cognitive impairment; no functional impairment; no malnutrition; no frailty; able to climb a flight of stairs (exercise capacity>4 METS); no obstructive sleep apnea; non-smoker; no alcohol misuse; no illicit drug use; no chronic cardiopulmonary condition; not obese;chronic cardiopulmonary condition(HTN: excellent control with current BP medication 128/60 L arm sitting) Anesthesia hx:no hx of anesthesia complications; no allergy to anesthetic agents; no family history of anesthesia complications; no anesthetic complications Functional Ability:able to walk up stairs; able to perform heavy work around the house; no difficulty walking up hills; able to walk 4 mph Post-Op Support:adequate assistance at home (GF and son) No EKG or Labsrecently been in office prior to this appointment to correct BP issuesdoing well, BP is now under excellent control with current medications recent lab-work on 12/10/23 was wnl ANILA MONTANA [address] [place], [address], [facility], [place], operated [facility] 12/13/2023 10:40:29 4 text/html c/o URI symptoms The patient is participating in this appointment via telemedicine communication with a phone call/video calling service ([employer])The patient consents to use of these platforms in place of an in-person appointment due to either sick symptoms the patient is presenting with or current office closure due to COVID exposure in order to keep our office staff and patients safe The patient presents to the office today with concerns of sick symptoms including chest congestion, constant cough, productive cough, rhinorrhea The symptoms started originally about a week agoThe patient reports exposure to his GF who just returned from travel and was sickThe patient symptoms mainly involves the peristent cough Pertinent comorbidities include n/a The patient symptoms are alleviated by restThe patient symptoms are exacerbated by laying flat, activity The patient has tested for COVID-19 and the results was unknown, did not test, does not want to test ANILA MONTANA [address] [place], [address], [facility], [place], [facility] 10/19/2024 15:07:26 5 text/html c/o weight and L shoulder The patient reports L shoulder painThe pain started about a month agoThe pain is characterized byOn a scale of 1 to 10 the patient reports a 8 at worse and 3 at bestThe patient is R hand dominant Endorses weakness, radiation, reduced ROM, painThe pain is worsened by circumduction, flexion, abductionThe pain is alleviated by rest The patient denies trauma or injuryThe patient reports repetitive activities with his 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, 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, 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 ROM compared to unaffected shoulder is lessened, around 100 degrees of forward flexion, 90 degrees of abduction Pertinent comorbidities include age, job has tried the powder drink replacements, stopped doing them gained the weight backcan't sustain a keto diet or dietrecommended something for appetite suppression ANILA MONTANA [address] [place], [address], [facility] [place] 11/30/2024 14:42:56 5 text/html c/o low back pain the patient did see the chiropractor last week, which didn't help, still aching and painful 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, 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 the patient reports that his low back, about around L2 to L3, bilaterallyfeels like an ache not sciatica, due to location, not low low back painnot affecting L5 the patient denies numbness and tingling pain when bending over and twisting to the side, panfilo the right side feels like a burning sensation when it really starts to actfeels okay when he gets up, worsens through the day as he works on the [employer] which is constant compression on his spine recommended imaging since last XR lumbar spine was 3 years worried it was kidney problems, which isn't around the correct locationdoes have occasional dark urine but admits to poor fluid intake (usually drinks soda or bud zero per pt admission)needs to increase fluid intake with water specifically XR lum 3 years ago showed moderate discogenic changes ANILA MONTANA [address] [place], [address], [facility] [place] 02/15/2025 15:19:13 5 text/html c/o lesion left knee the [...] infection of the surrounding skin ANILA MONTANA [address] [place] [address], [place], [address], [facility] 03/20/2025 11:57:54
== END 2025-03-20 13:39 | disposition home or self-care (01) ==
LOC: HO.MANLNP 13:38
PROVIDERS: Visit Provider Physician Assistant
DX: L03.818 Cellulitis of other sites (principal)
CPT/HCPCS: 87070; 87077; 87186; 87205